=== PATIENT | female | born 2005 | race Caucasian/White ===

== ENCOUNTER 2024-11-27 21:52 | Emergency (ER) | payer BC, SELFPAY ==
[2024-11-27 21:59] VITALS: BP 140/89
[2024-11-27 22:20] LABS: Hematocrit 39.1 % (37.0-47.0); Hemoglobin 13.5 g/dL (12.0-16.0); Mean Corp Hgb Conc. 34.5 g/dL (33.0-37.0); Mean Corpuscular Volume 88.1 fL (81.0-99.0); Nucleated Red Blood Cells % 0 %; Platelet Count 310 10^3/uL (130-400); Red Cell Dist. Width 12.3 % (11.5-14.5)
[2024-11-27 22:35] LABS: HCG, Serum Qualitative Screen Negative
[2024-11-27 22:39] LABS: ALT (SGPT) 31 U/L (0-35); AST (SGOT) 27 U/L (14-36); Albumin 5.0 g/dl (3.5-5.0); Alkaline Phosphatase 72 U/L (38-126); Blood Urea Nitrogen 19 mg/dl (7-17); Calcium 9.9 mg/dl (8.4-10.2); Carbon Dioxide 25 mmol/L (22-30); Chloride 104 mmol/L (98-107); Glucose 109 mg/dl (70-99); Potassium 4.1 mmol/L (3.5-5.1); Sodium 139 mmol/L (135-145); Total Protein 7.7 g/dl (6.3-8.2); eGFR > 60.00
[2024-11-27 22:49] LABS: Troponin I < 0.012 ng/ml
[2024-11-27 23:15] LABS: D-Dimer < 0.27 ug/mlFEU (0.00-0.50)
--- NOTE | 2024-11-28 01:51 | ED.GENMED ---
History of Present Illness
General
Chief Complaint: Heart Rate Problem
Source: patient
Exam Limitations: none
Time Seen by Provider: 11/28/24 01:40
Nursing documentation reviewed up to this point in time: agreed with
History of Present Illness
History of Present Illness:
The patient is a 19-year-old female with a history of palpitations initially occurring two years ago. The palpitations were previously associated with vision changes and feelings of panic due to increased heart rate. The patient was managed on
metoprolol for two years until her risk specialist advised discontinuation. She stopped metoprolol a few weeks ago, and over the last two weeks, the symptoms have recurred. The patient describes her heart 'fluttering way more,' leading to noticeable
shortness of breath and the necessity to stop talking when episodes occur due to feeling overwhelmed. It was noted that these symptoms occur even at rest and not just during exertion.
In response to the recent recurrence, the patient contacted her risk specialist and was advised to restart metoprolol. She resumed metoprolol yesterday with an initial dose of 12.5 mg at night, followed by another 12.5 mg in the morning. She had been
maintained on 12.5 mg daily. Her only other daily medication is control pills.
The patient reports being generally symptom-free while on the medication before discontinuation, despite occasional palpitations. Relief measures include increased salt intake and magnesium supplements, which she takes intermittently.
She denies risk of . Menses have been normal and on time. No recent travel. No leg pain or swelling. No cough nor fever.
She follows with risk specialist at [facility]. Previously evaluated with echocardiogram as well as 1 week Holter/event monitor.
Past History
Past History
ED Past Medical History: Other (Heart palpitations-maintained on metoprolol)
ED Past Surgical History: None
Social History
Tobacco: Non-smoker
Alcohol: Occasional
Drug: None
Personal: Single
Living: with family
Employment: Student
Family History
Family History: Other (Noncontributory)
Phy Exam
Physical Exam
Physical Exam:
GENERAL: 19-year-old female appears her stated age, awake and alert, pleasant, appears in no acute distress.
EYE: anicteric
NECK: Supple, nontender, no meningismus, no significant adenopathy.
ENT: oral mucosa is moist. No rhinorrhea.
CARDIAC: Regular rate and rhythm. no murmur. No rub.
LUNGS: Clear breath sounds bilaterally, no acute respiratory distress, no wheezes/rales/rhonchi
ABDOMEN: Soft, nondistended, without focal tenderness, no r/g, no cvat. normoactive BS.
NEUROLOGICAL: Alert and oriented x3, no focal neuro deficits. Gait is steady.
SKIN: Warm and dry, normal color, skin intact. No rash.
MUSCULOSKELETAL: No C/C/E. peripheral pulses are full and equal b/l. No palpable tenderness.
PSYCH: Normal and appropriate interaction.
Course
Orders/Labs/Results
Orders:
Orders
11/27/24 22:01
Electrocardiogram (*1) Urgent
Reason for Study: Chest Pain
EKG- Treatment ONCE
11/27/24 22:04
Test Result ONCE
11/27/24 22:13
Complete Blood Count/With Diff Urgent
Comprehensive Metabolic Panel Urgent
D-Dimer Urgent
HCG, Serum Qualitative Screen Urgent
TSH Reflex To Free T4 Urgent
Troponin I Urgent
Abnormal Lab Results
11/27/24
22:13
BUN 19 H mg/dl
(7-17)
Glucose 109 H mg/dl
(70-99)
11/27/24 22:13
11/27/24 22:13
Vital Signs
Initial and Last Documented VS:
Initial Vital Signs
Temp Pulse Resp BP Pulse Ox
98.7 F 73 19 140/89 98
11/27/24 21:59 11/27/24 21:59 11/27/24 21:59 11/27/24 21:59 11/27/24 21:59
Last Documented Vital Signs
Temp Pulse Resp BP Pulse Ox
98.7 F 73 19 140/89 98
11/27/24 21:59 11/27/24 21:59 11/27/24 21:59 11/27/24 21:59 11/27/24 21:59
MDM/Problems Addressed
Differential Diagnosis Includes:
The Differential Diagnosis includes, in no particular order and is not limited to:
1. Paroxysmal supraventricular tachycardia.
2. Atrial flutter.
3. Anxiety-related arrhythmia.
4. Inappropriate sinus tachycardia.
5. Hyperthyroidism (ruled out with normal thyroid function tests).
6. Premature ventricular contractions.
7. Mitral valve prolapse syndrome.
8. Anemia (ruled out with normal blood count).
9. Pulmonary embolism (ruled out with normal D-dimer).
10. Dehydration or electrolyte imbalance.
MDM/Problems Addressed:
Palpitations and shortness of breath.
Routine laboratory studies as well as TSH, D-dimer, troponin, hCG. All within normal limits.
EKG shows normal sinus rhythm, sinus arrhythmia, no ectopy.
Monitor shows normal sinus rhythm.
I suspect patient may be suffering with PVCs, PACs, other consideration is intermittent brief tacky arrhythmia but no episodes during ED evaluation.
Recommend she continue metoprolol succinate once daily, stay well-hydrated on a daily basis and recommend follow-up with her risk specialist for further evaluation.
Chronic conditions affecting care: Other (History of palpitations, questionable history of arrhythmia, maintained on metoprolol as per cardiology.)
Acute Exacerbation and/or Progression of Chronic Illness: Other (I suspect exacerbation of palpitations with discontinuation of metoprolol.)
*Pulse Oximetry
SaO2: 98
Oxygen Mode of Delivery: Room air
Patient hypoxic: no
*EKG
Interpreted by ED Provider?: Yes
Interpretation: normal
Comparison EKG: no comparison EKG present
Rate: normal
Rhythm: sinus and sinus arrhythmia
[place]: normal axis
Interval: normal interval
QRS Pattern: normal QRS
Ischemia: no ischemia
*Body Work Auto Trimmer Interpretation
Rate: normal
Interpretation: normal
Rhythm: sinus
*Critical Care Note
Total Time (30-74mins, 75-104mins- exclusive of procedures): Not Applicable
ED Attending Note
-
Portions of this chart may have been created with voice recognition software.� Occasional wrong word or��sound alike� substitutions may have occurred due to the inherent limitations of voice recognition software.
Discharge Plan
Departure
Patient Disposition: Home (Routine Discharge)
Date of Disposition: 11/28/24
Time of Disposition: 01:51
Patient with high blood pressure during this ER visit?: No
Condition: Good
Discharge Problem:
Heart palpitations
Instructions: Palpitations (DC)
Prescriptions:
No Action
ondansetron 4 MG tablet,disintegrating
4 mg PO TIDPRN PRN (Reason: nausea/vomiting) Qty: 10 0RF
Activity Restrictions/Additional Instructions:
Continue metoprolol daily as prescribed by risk specialist.
Stay well-hydrated on a daily basis.
Follow-up with your risk specialist for further evaluation.
Interventions
Interventions:
*Risk Screen - Suicide Last Done: 11/27/24 21:59
*General Assessment Last Done: 11/27/24 21:59
*Neglect/Abuse Screening Last Done: 11/27/24 21:59
Discharge Date and Time
Print Language: MALTESE
== END 2024-11-28 02:22 | disposition home or self-care (01) ==
LOC: EMR 21:52
PROVIDERS: Emergency Medicine; EMERGENCY PHYSICIAN Emergency Medicine
DX: R00.2 Palpitations (principal)
CPT/HCPCS: 99283; 80053; 84443; 84484; 84703; 85025; 85379; 93005